=== PATIENT | female | born 1945 | race Caucasian/White ===

== ENCOUNTER 2018-08-16 01:08 | Outpatient (CLI) | payer MEDICARE, BC, SELFPAY ==
[2018-08-16 12:19] LABS: Hemoglobin A1C 7.9 % (4.5-6.2)
== END 2018-08-16 01:28 ==
PROVIDERS: Nurse Practitioner Gerontology; PCP Nurse Practitioner Family; Visit Provider Nurse Practitioner Family
DX: E11.9 Type 2 diabetes mellitus without complications (principal); F32.9 Major depressive disorder, single episode, unspecified; E78.5 Hyperlipidemia, unspecified; J44.9 Chronic obstructive pulmonary disease, unspecified
CPT/HCPCS: 36415; 83036

== ENCOUNTER 2019-04-28 08:39 | Outpatient (CLI) | payer MEDICARE, BC, SELFPAY ==
[2019-04-28 10:53] LABS: Hemoglobin A1C 7.1 % (4.5-6.2)
[2019-04-28 10:55] LABS: ALT 16 U/L (12-78); AST 21 U/L (15-37); Albumin 3.7 g/dL (3.4-5.0); Alkaline Phosphatase 49 U/L (46-116); Anion Gap 12.4 mmol/L (3-11); BUN 17 mg/dL (7-18); Bilirubin, Total 0.5 mg/dL (0.2-1.0); CO2 24.6 mmol/L (21.0-32.0); CREATININE 0.82 mg/dL (0.55-1.02); Calculated LDL 87; Chloride 107 mmol/L (98-107); Cholesterol 139 mg/dL (50-200); Glucose 129 mg/dL (70-100); HDL Cholesterol 35 mg/dL (40-60); Potassium 4.5 mmol/L (3.5-5.1); Sodium 144 mmol/L (136-145); Triglyceride 87 mg/dL (30-150)
== END 2019-04-28 08:59 ==
PROVIDERS: PCP Nurse Practitioner Family; Visit Provider Nurse Practitioner Family
DX: E11.9 Type 2 diabetes mellitus without complications (principal)
CPT/HCPCS: 36415; 80053; 80061; 83721; 83036

== ENCOUNTER 2019-05-10 00:58 | Outpatient (CLI) | payer MEDICARE, BC, SELFPAY ==
--- NOTE | 2019-05-10 13:12 | DI.DEXA_ITS ---
SYMPTOMS/DIAGNOSIS: OSTEOPOROSIS, REASSESS, M81.0, AGE RELATED OSTEOPOROSIS W/O CURRENT PATHOLOGICAL FX DEXA SCAN WITH KENNEDI: The KENNEDI image show mid thoracic compression fractures which appear grossly stable when compared with the chest CT of 2015. The upper thoracic vertebral bodies are not well seen. The bone mineral density measurements of the lumbar spine correspond to a total T score of -1.3, in the osteopenic range. There is increased degenerative disc changes which falsely elevated the bone mineral density measurements. This is a 20% increase when compared with 2010 and 12.9% increase when compared with 2007. The bone mineral density measurements of the left hip correspond to a total T score of -2.2 and femoral neck T score of -2.8, in the osteoporotic range. This is not significantly changed from the previous exam but is a 4.2 % decrease when compared with 2007. The bone mineral density measurements of the left wrist correspond to a T score of -2.7 and T score of the distal third of -2.3, in the osteopenic range. This is a 5.8% decrease when compared with 2009. IMPRESSION: Stable thoracic compression fractures. Increased bone mineral density of the lumbar spine which may be secondary to increasing degenerative changes. Osteoporosis of the left hip and borderline osteopenia of the forearm.
== END 2019-05-10 01:18 ==
PROVIDERS: PCP Nurse Practitioner Family; Visit Provider Nurse Practitioner Family
DX: M81.0 Age-related osteoporosis without current pathological fracture (principal); M85.88 Other specified disorders of bone density and structure, other site; M48.54XD Collapsed vertebra, not elsewhere classified, thoracic region, subsequent encounter for fracture with routine healing
CPT/HCPCS: 77080

== ENCOUNTER 2019-08-23 02:20 | Outpatient (CLI) | payer MEDICARE, BC, SELFPAY ==
[2019-08-23 11:14] LABS: HCT 37.8 % (36.0-46.0); Mean Corp. HGB Concentration 31.7 g/dL (32.0-36.0); Mean Corpuscular Hemoglobin 30.2 pg (27.0-33.0); Mean Platelet Volume 9.7 fL (8.0-11.0); Platelet Count 399 x1000/uL (130-400); RBC 3.98 m/cumm (4.00-5.20); RBC Distribution Width 13.3 % (11.7-14.6)
[2019-08-23 11:36] LABS: ALT 12 U/L (14-59); AST 14 U/L (15-37); Albumin 3.6 g/dL (3.4-5.0); Alkaline Phosphatase 45 U/L (46-116); Anion Gap 11.1 mmol/L (3-11); BUN 23 mg/dL (7-18); Bilirubin, Total 0.4 mg/dL (0.2-1.0); CO2 23.9 mmol/L (21.0-32.0); CREATININE 0.99 mg/dL (0.55-1.02); Calcium 8.8 mg/dL (8.5-10.1); Calculated LDL 85 mg/dL; Chloride 107 mmol/L (98-107); Cholesterol 140 mg/dL (50-200); Estimated GFR 54.68 (mL/min/1.73m2); Glucose 129 mg/dL (70-100); HDL Cholesterol 33 mg/dL (40-60); Hemoglobin A1C 7.3 % (4.5-6.2); Potassium 4.8 mmol/L (3.5-5.1); Sodium 142 mmol/L (136-145); Triglyceride 110 mg/dL (30-150)
[2019-08-25 13:21] LABS: Vitamin D 25 Total 66.8 ng/ml (30-100)
== END 2019-08-23 02:40 ==
PROVIDERS: PCP Nurse Practitioner Family; Visit Provider Nurse Practitioner Family
DX: E11.9 Type 2 diabetes mellitus without complications (principal); E78.5 Hyperlipidemia, unspecified; M81.0 Age-related osteoporosis without current pathological fracture
CPT/HCPCS: 36415; 80053; 80061; 82306; 85027; 83036

== ENCOUNTER 2020-05-10 22:18 | Outpatient (REF) | payer MEDICARE, BC, SELFPAY ==
[2020-05-10 23:00] LABS: Hemoglobin A1C 7.2 % (3.8-5.6)
[2020-05-11 06:21] LABS: Anion Gap 13.2 mmol/L (3-11); BUN 16 mg/dL (7-18); CO2 22.8 mmol/L (21.0-32.0); CREATININE 0.99 mg/dL (0.55-1.02); Calcium 9.2 mg/dL (8.5-10.1); Calculated LDL 76 mg/dL (<100); Chloride 104 mmol/L (98-107); Cholesterol 139 mg/dL (<200); Estimated GFR 54.54 (mL/min/1.73m2); Glucose 129 mg/dL (74-106); HDL Cholesterol 38 mg/dL (40-60); Potassium 4.6 mmol/L (3.5-5.1); Sodium 140 mmol/L (136-145); Triglyceride 129 mg/dL (<150)
== END 2020-05-10 22:38 ==
LOC: LBN 22:18
PROVIDERS: PCP Nurse Practitioner Family; Visit Provider Nurse Practitioner Family
DX: E11.9 Type 2 diabetes mellitus without complications (principal); I10 Essential (primary) hypertension
CPT/HCPCS: 80048; 80061; 83036

== ENCOUNTER 2020-06-25 21:31 | Outpatient (REF) | payer MEDICARE, BC, SELFPAY ==
[2020-06-25 21:49] LABS: Anion Gap 11.5 mmol/L (3-11); BUN 17 mg/dL (7-18); CO2 24.5 mmol/L (21.0-32.0); CREATININE 1.03 mg/dL (0.55-1.02); Calcium 9.1 mg/dL (8.5-10.1); Chloride 104 mmol/L (98-107); Glucose 156 mg/dL (74-106); Potassium 4.6 mmol/L (3.5-5.1); Sodium 140 mmol/L (136-145)
== END 2020-06-25 21:51 ==
LOC: NCHCN 21:31
PROVIDERS: PCP Nurse Practitioner Family; Visit Provider Nurse Practitioner Family
DX: E11.9 Type 2 diabetes mellitus without complications (principal)
CPT/HCPCS: 80048

== ENCOUNTER 2020-08-19 13:49 | Emergency (ER) | payer MEDICARE, BC, SELFPAY ==
[2020-08-19] VITALS (22 sets, daily range): BP systolic 111–157; BP diastolic 57–106; PULSE 63–77; RESP 11–32; TEMP 36.9; O2SAT 96–100
--- NOTE | 2020-08-19 14:00 | RT.EKG_ITS ---
APPROVED REPORT Exam: Resting ECG Patient Location: E HR:65 bpm ECG Measurements Heart Rate 65 AXIS VA 145 P 68 QRSd 88 QRS 31 QT 418 T 47 QTc 435 Conclusion Sinus rhythm...normal P axis, V-rate 60- 99 Probable left atrial enlargement...P >50mS, <-0.10mV V1
--- NOTE | 2020-08-19 14:06 | W.ED.GENAD ---
Discharge Plan Disposition Patient Disposition: HOME Condition: Stable Discharge Details Clinical Impression: Vision changes Primary Care Provider: Felecia Bo ED Provider: Debra Milligan Home Meds and New Rx's Prescriptions: New aspirin 81 mg tablet,chewable 81 mg PO DAILY Qty: 30 RF: 0 Continued (DME) Blood Glucose Test Strip 1 ea Miscellaneous DAILY Qty: 100 RF: 4 fluoxetine 20 mg capsule 20 mg PO DAILY Qty: 90 RF: 4 metformin 500 mg tablet 500 mg PO DAILY Qty: 90 RF: 4 (DME) lancets [BD Ultra Fine Lancets] 33 gauge misc See Rx Instructions .ROUTE .MEDSUPPLY Qty: 100 RF: 4 simvastatin [Zocor] 20 mg tablet 20 mg PO QPM Qty: 90 RF: 4 albuterol sulfate 90 mcg/actuation HFA aerosol inhaler 2 puff IH Q6H PRN (Reason: shortness of breath or wheezing) Qty: 8.5 RF: 4 Prevnar 13 (PF) 0.5 mL syringe 0.5 ml IM ONCE Qty: 0.5 RF: 0 GLUCOS-CHOND 500 COMPLEX CP 1 EACH capsule 1 cap PO DAILY RF: 0 fluticasone propionate 16 GM spray,suspension 1 - 2 spr NS DAILY PRNQty: 3 RF: 4 ibuprofen 800 mg tablet 800 mg PO BID PRN (Reason: pain) Qty: 90 RF: 0 losartan [Cozaar] 25 mg tablet 25 mg PO HS Qty: 90 RF: 4 Pulmicort Flexhaler 90 mcg/actuation aerosol powdr breath activated 90 mcg Inhalation BID Qty: 3 RF: 4 Discharge Instructions Instructions: Blurred Vision (ED) Additional Instructions: Follow-up with [facility] first thing in the morning. Return to the ED for any worsening headache, weakness numbness dizziness or confusion. Start taking a baby aspirin chewable tablet daily. Follow-up with your primary care provider regarding the mild internal artery stenosis noted on the CT. Follow up with primary care provider in 3-5 days. Return to ED sooner if any worsening or concerns. Increase oral fluids. [address] [place] [address] ? ~1.6 mi Referrals: Felecia Bo NP [Primary Care Provider] - Discharge Data Discharge Date/Time-TO BE ENTERED AT DEPARTURE: 08/19/20 16:35 Medical Decision Making 35-year-old female presents to the ED with chief complaint of left eye vision loss. Patient states that over the last week she has noticed wiggly lines and kaleidoscope-like vision to her bilateral eyes and last night while riding in a car she reports a reyes mask area to her left eye, she reports sensitivity to light, she also endorses some left-sided headache which she attributes to the wood-burning stove. She only wears glasses for reading. She has a past medical history of COPD, type 2 diabetes mellitus, depression, hypertension, hyperlipidemia. Upon initial exam she is alert and oriented x3 has no weakness or numbness in her extremities. No facial droop. She is a former smoker. EKG was reviewed by Dr. Janis PADILLA ER attending, please see his official reading. Old EKG is available for review. Normal sinus rhythm. Work-up ordered including labs and EKG including a troponin, CTA of brain and neck ordered to rule out thrombosis or CVA. Patient is neurologically intact with no focal neuro deficits noted. Differential diagnosis includes but not limited to CVA, giant cell arteritis, venous thrombosis, retinal artery occlusion, macular degeneration. IMPRESSION: No acute abnormality seen to account for symptoms. Diminutive right COUPLES THERAPIST, apparent anatomic variant. PROCEDURE INFORMATION: Exam: CT Angiography Neck With Contrast Exam date and time: 08/19/2020 2:59 PM Age: 75 years old Clinical indication: Visual disturbance; Sudden visual loss; Patient HX: Left eye vision loss - sudden. Left sided head ache COMPARISON: No relevant prior studies available. FINDINGS: Right common carotid artery: No stenosis. No dissection or occlusion. Right internal carotid artery: There is mild plaque in the proximal right ICA. No significant stenosis. Mild ectasia. Right external carotid artery: No occlusion or stenosis of the origin. Right vertebral artery: No stenosis. No dissection or occlusion. Left common carotid artery: No stenosis. No dissection or occlusion. Left internal carotid artery: There is moderate plaque with mild stenosis in the proximal left ICA with ectasia distally. Left external carotid artery: No occlusion or stenosis of the origin. Left vertebral artery: No stenosis. No dissection or occlusion. Bones/joints: No acute fracture. Soft tissues: Normal. No significant soft tissue swelling. Lungs: Severe COPD noted in the lung apices. IMPRESSION: Mild proximal left ICA stenosis. REFERENCES: NASCET CRITERIA. The degree of internal carotid artery stenosis is based on NASCET criteria. Normal is no stenosis. Mild is less than 50% stenosis. Moderate is 50-69% stenosis. Severe is 70% to 99% stenosis. Total occlusion is no detectable patent lumen. Thank you for allowing us to participate in the care of your patient. Dictated and Authenticated by: Sylvie Malone MD [id number]: Patient remains hemodynamically stable, neurologically intact with no focal neuro deficits. Discussed follow-up with ophthalmology verbalized understanding. Patient states that she is leaving for [place] on Thursday I will urged her to call [facility] morning for possible appointment tomorrow. Patient verbalized understanding. HPI General Mode of arrival: ambulatory. Date/Time Provider Initiated Documentation: 08/19/20 13:50. Limitations to Documentation: no limitations. Information obtained by: patient. HPI Narrative: 35-year-old female presents to the ED with chief complaint of left eye vision loss. Patient states that over the last week she has noticed wiggly lines and kaleidoscope-like vision to her bilateral eyes and last night while riding in a car she reports a reyes mask area to her left eye, she reports sensitivity to light, she also endorses some left-sided headache which she attributes to the wood-burning stove. She only wears glasses for reading. She has a past medical history of COPD, type 2 diabetes mellitus, depression, hypertension, hyperlipidemia. Upon initial exam she is alert and oriented x3 has no weakness or numbness in her extremities. No facial droop. She is a former smoker. Related Data Home Medications Medication Instructions Recorded Confirmed Glucos-Chond 500 Complex Cp 1 cap PO DAILY 02/17/13 08/19/20 fluticasone propionate 1 - 2 spr NS DAILY PRN #3 bottle 05/04/17 08/19/20 albuterol sulfate 90 mcg/actuation 2 puff IH Q6H PRN #8.5 gm 05/06/19 08/19/20 aerosol inhaler ibuprofen 800 mg tablet 800 mg PO BID PRN #90 tab 08/22/19 08/19/20 losartan 25 mg tablet 25 mg PO HS #90 tab-cap 08/22/19 08/19/20 budesonide 90 mcg/actuation breath 90 mcg INHALATION BID #3 each 01/12/20 08/19/20 activated powder inhaler pneumoc 13-octavio conj-dip cr(PF) 0.5 0.5 ml IM ONCE #0.5 ml 05/10/20 08/19/20 mL IM syringe blood sugar diagnostic #100 strip 06/25/20 06/25/20 fluoxetine 20 mg capsule 20 mg PO DAILY #90 cap 06/25/20 08/19/20 lancets 33 gauge #100 ea 07/26/20 07/26/20 metformin 500 mg tablet 500 mg PO DAILY #90 tab 07/26/20 08/19/20 simvastatin 20 mg tablet 20 mg PO QPM #90 tab-cap 07/26/20 08/19/20 aspirin 81 mg PO DAILY #30 tab 08/19/20 Previous Rx's Medication Instructions Recorded albuterol sulfate 90 mcg/actuation 2 puff IH Q6H PRN #8.5 gm 05/06/19 aerosol inhaler ibuprofen 800 mg tablet 800 mg PO BID PRN #90 tab 08/22/19 losartan 25 mg tablet 25 mg PO HS #90 tab-cap 08/22/19 budesonide 90 mcg/actuation breath 90 mcg INHALATION BID #3 each 01/12/20 activated powder inhaler pneumoc 13-octavio conj-dip cr(PF) 0.5 0.5 ml IM ONCE #0.5 ml 05/10/20 mL IM syringe blood sugar diagnostic #100 strip 06/25/20 fluoxetine 20 mg capsule 20 mg PO DAILY #90 cap 06/25/20 lancets 33 gauge #100 ea 07/26/20 metformin 500 mg tablet 500 mg PO DAILY #90 tab 07/26/20 simvastatin 20 mg tablet 20 mg PO QPM #90 tab-cap 07/26/20 aspirin 81 mg PO DAILY #30 tab 08/19/20 Allergies Allergy/AdvReac Type Severity Reaction Status Date / Time alcohol Allergy Severe WOULD Unverified 08/19/20 14:01 KILL HER lisinopril AdvReac Mild dizzy Unverified 08/19/20 14:01 YEAST AdvReac Mild PASSES OUT Uncoded 08/19/20 14:01 General Stated Complaint: EyeProblem ADRIANO: 3 Review of Systems Narrative: Constitutional: Negative for weight loss, alert and oriented, well groomed, normal body habitus, appears comfortable. HEENT: Denies trauma, nasal discharge, sore throat, trouble swallowing. Reports left-sided headaches, left sided vision loss. Chest: Denies chest pain, palpitations, irregular rhythm, hypertension. Respiratory: Denies Shortness of breath, cough, hemoptysis. GI: Denies abdominal pain, nausea, vomiting, diarrhea, constipation. : Denies dysuria, hematuria, flank pain, rectal bleeding. Neuro: Denies dizziness, weakness, syncope,or facial numbness. Hematologic: Denies easy bruising, intolerance to heat or cold, hair loss. [facility] Medical History Allergic rhinitis COPD (chronic obstructive pulmonary disease) Essential hypertension Hyperlipidemia Major depressive disorder Obstructive sleep apnea syndrome Declines CPAP or nocturnal oxygen Osteoporosis Dexa 2018 Pancreatitis Sigmoid diverticulosis Type 2 diabetes mellitus Surgical History S/P colonoscopy (11/25/11) S/P ORIF (open reduction internal fixation) fracture (04/30/09) Right olecranon fracture Family History Mother Heart disease Hyperlipidemia Type 2 diabetes mellitus Myocardial infarction Hypertension Father Heart disease Chronic obstructive lung disease Hypertension Sister Breast cancer in her 70s Sister No problems noted. Sister Heart disease Hypertension Sister No problems noted. Brother , at 72 of bladder CA Bladder cancer Brother Hyperlipidemia Heart disease Hypertension Brother Depression Daughter Congenital heart disease Daughter No problems noted. Maternal Grandfather Myocardial infarction Heart disease Maternal Grandmother No problems noted. Paternal Grandfather Heart disease Myocardial infarction Paternal Grandmother Type 2 diabetes mellitus Social History Smoking/Tobacco Use Status: Former Tobacco Use Quit Date: 04/09/00 Pack-years: 38 Tobacco: How many years used: 20 Quit status: quit date established Alcohol Intake: never Drug use: Never Substance use type: does not use Caregiver/Support person: No Household members: significant other Communication Needs: None Pets and animals: Yes Pets and animals: dog(s) Sexually active: No Do you think of yourself as: straight/heterosexual Current gender identity: female What is your relationship status?: living with partner How often do you talk on the phone with friends or family?: once per week How often do you get together with friends or relatives?: once per week How often do you attend yazdanism or confucianism services?: decline to answer Do you belong to any clubs or organized social groups?: yes Panel score (0-1 are the most socially isolated patients): 2 What type of physical activity do you participate in: walking Duration: 15-30 minutes/day Frequency: daily Huong/Sabianism: Adventism Special huong needs: No Seatbelt use: always Helmet use: No Drive intox or ride w/intox armored car guard and driver: No Female Reproductive History Menstrual Menopause type: natural History History 2 Para 2 Hx # Term Pregnancies Multiple births Hx # Pregnancies Ectopic pregnancies AB induced Hx Number of Living Children 2 AB spontaneous Exam Narrative Exam Narrative: Constitutional: Alert and oriented x3. Appears stated age. Normal body habitus. Head: Normocephalic, no trauma. Eyes: Pupils PERRLA, Red reflex noted, EOM's intact. Right eye visual acuity is 20/200, left eye unable to read the Snellen chart at all, both eyes vision is 20/25 eyelids symmetrical without lesions, discharge, or swelling. ENT: Bilateral TM's WNL, External ear normal to inspection, no mastoid TTP, swelling, or erythema, Nasal turbinates WNL, no nasal discharge. Normal dentition, Posterior pharynx WNL, no exudate. Chest: RRR, Normal S1, S2, distal pulses intact. Resp: Lungs clear to auscultation bilaterally, no wheezes, rales, or rhonchi. Musculoskeletal: Normal gait, 5/5 strength to all four extremities. Skin: No suspicious rashes or lesions. Capillary refill less than 2 sec. Neurologic: Cranial nerves II-XII intact. Alert and oriented x 3. DTR's intact. Hematologic/Lymphatic: No ecchymosis, no lymphadenopathy. Course Vital Signs Vital signs: Vital Signs Temperature 36.9 C 08/19/20 13:53 Pulse 71 08/19/20 13:53 Blood Pressure 157/106 H 08/19/20 13:53 Pulse Oximetry 96 08/19/20 13:53 Temperature 36.9 C 08/19/20 13:53 Temperature Source Temporal Artery Scan 08/19/20 13:53 Pulse 71 08/19/20 13:53 Respiratory Effort Non-Labored 08/19/20 14:01 Blood Pressure 157/106 H 08/19/20 13:53 Blood Pressure Position Sitting 08/19/20 13:53 Pulse Oximetry 96 08/19/20 13:53 Oxygen Delivery Method Room Air 08/19/20 13:53 Oxygen Flow Rate 0 08/19/20 13:53 Pain Level 0 08/19/20 13:53
[2020-08-19 14:28] LABS: Abs Immature Grans 0.02 10^3/uL (0.0-0.06); Absolute Basophil Count 0.02 10^3/uL (0.0-0.2); Absolute Eosinophil Count 0.14 10^3/uL (0.0-0.7); Absolute Monocyte Count 0.73 10^3/uL (0.1-0.8); Absolute Neutrophil Count 4.89 10^3/uL (1.2-6.7); Basophils % 0.3; Eosinophils % 1.8; HCT 36.4 % (36.0-46.0); HGB 11.9 g/dL (11.2-15.7); Immature Grans % 0.3; Lymphocytes % 24.7; MCH 30.4 pg (27.0-33.0); MCHC 32.7 % (32.0-36.0); MCV 93.1 fL (80-95); MPV 9.5 fL (8.0-11.0); Monocytes % 9.5; Neutrophils % 63.4; Nucleated RBC 0 %; Platelet Count 308 10^3/uL (130-400); RBC 3.91 10^6/uL (3.93-5.22); RDW 13.1 % (11.7-14.6); RDW-SD 44.5 fL
--- NOTE | 2020-08-19 14:35 | NUR.NOTE ---
Nursing Note: Patient states she has had intermittent headaches up the left side of her neck going to behind her left eye x years. States she takes a 325 mg ASA and it goes away. States they have increased in frequency since she started using the woodstove. States she has had increased stress recently due do the of her this spring and being able to have a service for him. States her vision in both eyes has been fuzzy with difficulty focusing x 3 days when she wakes in the AM. States she woke with the left side RUIZ going up her left neck to behind her left eye this AM While driving with her daughter this AM approx. 1100 she had sudden onset painless vision loss in her left eye. States her vision field was all reyes with little squiggly lines through it. When she arrived here the reyes went away and now looks like black and white summer dye. States she can tell I have a black shirt on. Denies any pain at this time.
[2020-08-19 14:43] LABS: ALT 15 U/L (14-59); AST 19 U/L (15-37); Albumin 3.4 g/dL (3.4-5.0); Alkaline Phosphatase 55 U/L (46-116); Anion Gap 10.6 mmol/L (3-11); BUN 22 mg/dL (7-18); Bilirubin, Total 0.3 mg/dL (0.2-1.0); CO2 24.4 mmol/L (21.0-32.0); CREATININE 0.98 mg/dL (0.55-1.02); Calcium 8.8 mg/dL (8.5-10.1); Chloride 103 mmol/L (98-107); Estimated GFR 55.18 (mL/min/1.73m2); Glucose 158 mg/dL (74-106); Magnesium 1.7 mg/dL (1.8-2.4); Sodium 138 mmol/L (136-145); Total Protein 7.1 g/dL (6.4-8.2)
[2020-08-19 14:46] LABS: Troponin I < 0.05 ng/mL (<0.06)
[2020-08-19] MEDS: Normal Saline - Diluent 50 ML VIAL IV (15:06)
[2020-08-19] MEDS: Omnipaque 350 MG/ML 100 ML BTL IJ (15:07)
[2020-08-19 15:08] LABS: C-Reactive Protein < 0.05 mg/dL (0.0-0.3)
--- NOTE | 2020-08-19 15:10 | DI.CT_ITS ---
EXAM: CT BRAIN NECK CTA CLINICAL HISTORY: Left eye vision loss, left sided Headache. TECHNIQUE: Imaging Protocol: Axial CT angiography was performed with multi-slice acquisition and mu lti-planar and/or 3D reconstructions. CONTRAST MATERIAL: Intravenous: Omnipaque 350 Contrast volume:85 mL COMPARISON: No previous for comparison. FINDINGS: CT Head W/O: Ventricles and Extra axial spaces: Normal in size and morphology for the patient's age. Hemorrhage: None. Cerebral parenchyma: There are areas of decreased attenuation in the white matter most consistent wit h chronic microvascular ischemic disease. 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 Midline shift: None. Brainstem/Cerebellum: Normal. Calvarium: Normal. Visualized Paranasal sinuses/Mastoids: Clear. Soft Tissues: Unremarkable. CTA Brain W: Internal Carotid Arteries: Petrous: Normal. Cavernous: Normal. Cerebral: Normal. Anterior Cerebral Arteries: Right: No aneurysm, occlusion or significant stenosis. Left: No aneurysm, occlusion or significant stenosis. Middle Cerebral Arteries: Right: No aneurysm, occlusion or significant stenosis. Left: No aneurysm, occlusion or significant stenosis. Posterior cerebral Arteries: Right: No aneurysm, occlusion or significant stenosis. Diminutive P1 segment. Left: No aneurysm, occlusion or significant stenosis. Diminutive P1 segment. Vertebral Arteries: Right: No aneurysm, occlusion or significant stenosis. Left: No aneurysm, occlusion or significant stenosis. Basilar Artery: No aneurysm, occlusion or significant stenosis. CTA Neck W: Common Carotid: Right: No dissection, occlusion or significant stenosis. Mild atherosclerosis in the carotid bulb. Left: No dissection, occlusion or significant stenosis. Mild atherosclerosis in the carotid bulb. External Carotid: Right: No occlusion or significant stenosis. Left: No occlusion or significant stenosis. Internal Carotid: Right: No dissection, occlusion or significant stenosis. Mild atherosclerosis in the proximal ICA. Left: No dissection or occlusion. Mild narrowing of the proximal ICA. Mild atherosclerosis in the proximal ICA. Vertebral Artery: Right: No dissection, occlusion or significant stenosis. Left: No dissection, occlusion or significant stenosis. Lung Apices: Normal. Bones: Normal. Soft Tissues: Normal. IMPRESSION: 1. No evidence of occlusion or significant stenosis on the CTA of the head. 2. No acute intracranial process. 3. Atherosclerosis. Mild proximal left ICA stenosis. RADIATION DOSE DELIVERED: 1,041.37mGy.cm Total DLP DATA REPOSITORY: All CT scans at this facility are submitted to the National Radiology Data Registry (NRDR) Dose Index Registry (DIR) with the [employer] (ACR). RADIATION OPTIMIZATION: All CT scans at this facility use at least one of these dose optimization te chniques: automated exposure control; mA and/or kV adjustment per patient size (includes targeted exa ms where dose is matched to clinical indication); or iterative reconstruction.
[2020-08-19 15:42] LABS: ESR 20 mm/hr (0-30)
--- NOTE | 2020-08-23 16:03 | DI.VRAD_ITS ---
PROCEDURE INFORMATION: Exam: CT Angiography Head With Contrast Exam date and time: 08/19/2020 2:59 PM Age: 75 years old Clinical indication: Visual disturbance; Sudden visual loss; Patient HX: Left eye vision loss - sudden. Left sided head ache TECHNIQUE: Imaging protocol: Computed tomography angiography of the head with intravenous contrast. 3D rendering (Not supervised by radiologist): MIP and/or 3D reconstructed images were created by the technologist. Radiation optimization: All CT scans at this facility use at least one of these dose optimization techniques: automated exposure control; mA and/or kV adjustment per patient size (includes targeted exams where dose is matched to clinical indication); or iterative reconstruction. Contrast material: OMNI 350; Contrast volume: 85 ml; Contrast route: INTRAVENOUS (IV); COMPARISON: No relevant prior studies available. FINDINGS: ANTERIOR CIRCULATION: Right internal carotid artery: Unremarkable. Intracranial segment is patent with no significant stenosis. No aneurysm. Right middle cerebral artery: Unremarkable. No occlusion or significant stenosis. No aneurysm. Right anterior cerebral artery: Unremarkable. No occlusion or significant stenosis. No aneurysm. Left internal carotid artery: Unremarkable. Intracranial segment is patent with no significant stenosis. No aneurysm. Left middle cerebral artery: Unremarkable. No occlusion or significant stenosis. No aneurysm. Left anterior cerebral artery: Unremarkable. No occlusion or significant stenosis. No aneurysm. POSTERIOR CIRCULATION: Right vertebral artery: Unremarkable. No occlusion or significant stenosis. No aneurysm. Left vertebral artery: Unremarkable. No occlusion or significant stenosis. No aneurysm. Basilar artery: Unremarkable. No occlusion or significant stenosis. No aneurysm. Right posterior cerebral artery: The right RAILROAD CONDUCTOR is diminutive, presumed anatomic variant. There is origin of the right RAILROAD CONDUCTOR. Left posterior cerebral artery: Unremarkable. No occlusion or significant stenosis. No aneurysm. Brain: No definite mass, mass effect, or midline shift. Cerebral ventricles: Normal. No ventriculomegaly. Bones/joints: Unremarkable. No acute fracture. Soft tissues: Unremarkable. IMPRESSION: No acute abnormality seen to account for symptoms. Diminutive right RAILROAD CONDUCTOR, apparent anatomic variant. PROCEDURE INFORMATION: Exam: CT Angiography Neck With Contrast Exam date and time: 08/19/2020 2:59 PM Age: 75 years old Clinical indication: Visual disturbance; Sudden visual loss; Patient HX: Left eye vision loss - sudden. Left sided head ache TECHNIQUE: Imaging protocol: Computed tomography angiography of the neck with intravenous contrast. 3D rendering (Not supervised by radiologist): MIP and/or 3D reconstructed images were created by the technologist. Radiation optimization: All CT scans at this facility use at least one of these dose optimization techniques: automated exposure control; mA and/or kV adjustment per patient size (includes targeted exams where dose is matched to clinical indication); or iterative reconstruction. Contrast material: OMNI 350; Contrast volume: 85 ml; Contrast route: INTRAVENOUS (IV); COMPARISON: No relevant prior studies available. FINDINGS: Right common carotid artery: No stenosis. No dissection or occlusion. Right internal carotid artery: There is mild plaque in the proximal right ICA. No significant stenosis. Mild ectasia. Right external carotid artery: No occlusion or stenosis of the origin. Right vertebral artery: No stenosis. No dissection or occlusion. Left common carotid artery: No stenosis. No dissection or occlusion. Left internal carotid artery: There is moderate plaque with mild stenosis in the proximal left ICA with ectasia distally. Left external carotid artery: No occlusion or stenosis of the origin. Left vertebral artery: No stenosis. No dissection or occlusion. Bones/joints: No acute fracture. Soft tissues: Normal. No significant soft tissue swelling. Lungs: Severe COPD noted in the lung apices. IMPRESSION: Mild proximal left ICA stenosis. REFERENCES: NASCET CRITERIA. The degree of internal carotid artery stenosis is based on NASCET criteria. Normal is no stenosis. Mild is less than 50% stenosis. Moderate is 50-69% stenosis. Severe is 70% to 99% stenosis. Total occlusion is no detectable patent lumen. Dictated and Authenticated by: Sylvie Malone MD. Ordering:XUAN Richardson MD
== END 2020-08-19 16:35 | disposition home or self-care (01) ==
PROVIDERS: Emergency Provider Registered Nurse Emergency; PCP Nurse Practitioner Family
DX: H54.62 Unqualified visual loss, left eye, normal vision right eye (principal); R51.9 Headache, unspecified; I10 Essential (primary) hypertension; E11.9 Type 2 diabetes mellitus without complications; Z79.84 Long term (current) use of oral hypoglycemic drugs; J44.9 Chronic obstructive pulmonary disease, unspecified; Z87.891 Personal history of nicotine dependence
CPT/HCPCS: 36415; 36416; 70496; 70498; 80053; 82962; 85652; 93005; 99285; 83735; 84484; 85025; 86140; 93010; 99284; J3490

== ENCOUNTER 2021-04-30 02:58 | Outpatient (CLI) | payer MEDICARE, BC, SELFPAY ==
[2021-04-30 12:28] LABS: Abs Immature Grans 0.02 10^3/uL (0.0-0.06); Absolute Basophil Count 0.03 10^3/uL (0.0-0.2); Absolute Eosinophil Count 0.09 10^3/uL (0.0-0.7); Absolute Lymphocyte Count 1.83 10^3/uL (1.2-3.4); Absolute Monocyte Count 0.56 10^3/uL (0.1-0.8); Basophils % 0.4; Eosinophils % 1.2; HCT 39.8 % (36.0-46.0); HGB 12.5 g/dL (11.2-15.7); Immature Grans % 0.3; Lymphocytes % 23.7; MCH 29.1 pg (27.0-33.0); MCHC 31.4 % (32.0-36.0); MCV 92.6 fL (80-95); MPV 10.1 fL (8.0-11.0); Monocytes % 7.2; Neutrophils % 67.2; Nucleated RBC 0 %; Platelet Count 362 10^3/uL (130-400); RDW 13.3 % (11.7-14.6); RDW-SD 45.6 fL; WBC 7.73 10^3/uL (4.4-10.8)
[2021-04-30 13:51] LABS: ALT 18 U/L (14-59); AST 15 U/L (15-37); Albumin 3.8 g/dL (3.4-5.0); Alkaline Phosphatase 45 U/L (46-116); Anion Gap 10.4 mmol/L (3-11); BUN 15 mg/dL (7-18); Bilirubin, Total 0.6 mg/dL (0.2-1.0); CO2 23.6 mmol/L (21.0-32.0); Calcium 8.7 mg/dL (8.5-10.1); Calculated LDL 69 mg/dL (<100); Chloride 105 mmol/L (98-107); Cholesterol 124 mg/dL (<200); Estimated GFR 53.76 (mL/min/1.73m2); Glucose 138 mg/dL (74-106); HDL Cholesterol 36 mg/dL (40-60); Potassium 4.4 mmol/L (3.5-5.1); Sodium 139 mmol/L (136-145); Total Protein 7.2 g/dL (6.4-8.2); Triglyceride 95 mg/dL (<150)
== END 2021-04-30 02:59 | disposition home or self-care (01) ==
LOC: LOS 02:59
PROVIDERS: PCP Nurse Practitioner Family; Visit Provider Nurse Practitioner Family
DX: E11.9 Type 2 diabetes mellitus without complications (principal)
CPT/HCPCS: 36415; 80053; 80061; 85025

== ENCOUNTER 2022-07-10 05:18 | Outpatient (CLI) | payer MEDICARE, BC, SELFPAY ==
[2022-07-10 13:03] LABS: HCT 37.2 % (36.0-46.0); HGB 11.6 g/dL (11.2-15.7); MCH 29.6 pg (27.0-33.0); MCHC 31.2 % (32.0-36.0); MCV 95 fL (80-95); MPV 9.9 fL (8.0-11.0); Platelet Count 332 10^3/uL (130-400); RBC 3.92 10^6/uL (3.93-5.22); RDW 14.4 % (11.7-14.6); RDW-SD 49.8 fL
[2022-07-10 13:23] LABS: Hemoglobin A1C 7.3 % (<5.7)
[2022-07-10 13:30] LABS: ALT 17 U/L (14-59); AST 19 U/L (15-37); Albumin 3.5 g/dL (3.4-5.0); Alkaline Phosphatase 38 U/L (46-116); Anion Gap 9.8 mmol/L (3-11); BUN 15 mg/dL (7-18); Bilirubin, Total 0.6 mg/dL (0.2-1.0); CO2 25.2 mmol/L (21.0-32.0); CREATININE 0.9 mg/dL (0.55-1.02); Calcium 8.9 mg/dL (8.5-10.1); Calculated LDL 68 mg/dL (<100); Chloride 106 mmol/L (98-107); Cholesterol 122 mg/dL (<200); Estimated GFR 65.44 (mL/min/1.73m2); Glucose 115 mg/dL (74-106); HDL Cholesterol 40 mg/dL (40-60); Potassium 4.4 mmol/L (3.5-5.1); Sodium 141 mmol/L (136-145); TSH (W/Ref FT4) 1.39 uIU/mL (0.36-3.74); Total Protein 7.2 g/dL (6.4-8.2); Triglyceride 72 mg/dL (<150)
[2022-07-10 22:10] LABS: Albumin ug/mg Crea 22 (<30); Albumin, Ur 2.6 mg/dL (See Note); Creatinine, Ur 119.2 mg/dL (See Note)
== END 2022-07-10 05:19 | disposition home or self-care (01) ==
LOC: LOS 05:18
PROVIDERS: PCP Nurse Practitioner Family; Visit Provider Family Medicine
DX: E11.9 Type 2 diabetes mellitus without complications (principal); R53.83 Other fatigue; R59.0 Localized enlarged lymph nodes; I10 Essential (primary) hypertension
CPT/HCPCS: 36415; 80053; 80061; 85027; 82043; 82570; 83036; 84443

== ENCOUNTER 2023-07-29 03:34 | Outpatient (CLI) | payer MEDICARE, BC, SELFPAY ==
[2023-07-29 12:22] LABS: BUN 14 mg/dL (7-18); CREATININE 0.9 mg/dL (0.55-1.02); Calcium 9.1 mg/dL (8.5-10.1); Chloride 104 mmol/L (98-107); Estimated GFR 65.03 (mL/min/1.73m2); Glucose 143 mg/dL (74-106); Potassium 4.3 mmol/L (3.5-5.1); Sodium 137 mmol/L (136-145)
[2023-07-30 13:15] LABS: Hepatitis C Ab w Rflx HCV PCR Negative (Negative)
== END 2023-07-29 03:35 | disposition home or self-care (01) ==
LOC: LOS 03:37
PROVIDERS: PCP Nurse Practitioner Family; Visit Provider Nurse Practitioner Family
DX: E11.9 Type 2 diabetes mellitus without complications (principal); Z11.59 Encounter for screening for other viral diseases; Z00.00 Encounter for general adult medical examination without abnormal findings
CPT/HCPCS: 36415; 80048; 86803

== ENCOUNTER 2025-03-28 10:48 | Outpatient (CLI) | payer MEDICARE, BC, SELFPAY ==
--- NOTE | 2025-03-28 10:30 | DI.RAD_ITS ---
Exam(s) XR COCCYX XR LUMBAR SPINE COMPLETE EXAM: XR LUMBAR SPINE COMPLETE CLINICAL HISTORY: lumbar pain,m54.50. TECHNIQUE: 2D digital imaging was performed. Five views the lumbar spine. Two views of the sacrum and coccyx.. COMPARISON: DX DEXA BONE DENSITY WITH KENNEDI from 01/08/2010 CR CHEST 2 VIEWS PA,LAT from 03/20/2015 CT CHEST WITHOUT CONTRAST from 03/20/2015 DX XR DEXA BONE DENSITY W/WO KENNEDI from 05/10/2019 CR XR COCCYX from 03/28/2025 FINDINGS: BONES: Mild compression fracture of the inferior endplate of L1 which appears new from DEXA scan from 2019. Facet degenerative changes are most prominent at L4-5 and L5-S1. no fractures identified in t he sacrum or coccyx. DISKS: Severe narrowing of the L4-5 disc space. [id number] narrowing at L5-S1. ALIGNMENT: Moderate levoscoliosis. SOFT TISSUE: Calcified aorta. IMPRESSION: Severe degenerative changes at L4-5. Scoliosis. Mild L1 compression fracture of indeterminate age b ut new since 2019. DATA REPOSITORY: RADIATION DOSE DELIVERED:
== END 2025-03-28 11:08 ==
LOC: DI 10:48
PROVIDERS: PCP Nurse Practitioner Family; Visit Provider Nurse Practitioner Family
DX: M53.3 Sacrococcygeal disorders, not elsewhere classified (principal); M51.360 Other intervertebral disc degeneration, lumbar region with discogenic back pain only
CPT/HCPCS: 72110; 72220